=== PATIENT | male | born 1945 | race Caucasian/White ===

== ENCOUNTER 2017-04-14 11:38 | Inpatient (IN) | payer OTHER ==
--- NOTE | ~2017-04-14 | HEMODYNAMI ---
PATIENT:PATEL FARRIS MEDICAL RECORD: [id number] : 47 LOCATION:[place] [address] ADMISSION DATE: 04/14/17 Generatedon:04/15/20177:47 Patient name: PATEL FARRIS Patient #: [id number] SSN: DO B: 1945 Date of study: 04/15/2017 Page: Of Hemodynamic Procedure Report Patient Data Patient Demographics Procedure consent was obtained First Name: PATEL Gender: Male Last Name: KALEIGH : 1945 Patient #: [id number] Age: 72 year(s) Race: Unknown Additional ID: [id number] Contact details [address]: [address] [place] [address] State: [place] City: [place] Zip code: [address] Admission Admission Data Admission Date: 04/14/2017 Admission Time: 15:25 Room #: D2117 Lab Results Lab Result Date: 04/15/2017 Lab Result Time: 0:00 Biochemistry Name Units Result Min Max BUN mg/dl 9 --(*---)-- 7 18 Creatinine mg/dl 0.9 --(-*--)-- 0.6 1.3 CBC Name Units Result Min Max Hematocrit % 40.9 -*(----)-- 42 54 Hemoglobin g/dl 14.2 --(*---)-- 13.5 17.5 RBC 10^6/l 4.23 --(*---)-- 4.2 6.1 Procedure Procedure Types Cath Procedure Diagnostic Procedure LHC LHC w/Coronaries Miscellaneous Procedures Moderate Sedation up to 15 minutes Procedure Description Procedure Date Procedure Date: 04/15/2017 Procedure Start Time: 7:29 Procedure End Time: 7:46 Procedure Staff Name Function Sid Johnson MD Performing Physician Kady Gallegos RT Scrub Laura Ferreira RN Nurse Darron Yang RT Monitor Procedure Data Cath Procedure Fluoroscopy Diagnostic fluoroscopy Total fluoroscopy Time: 1.8 time: 1.8 min min Diagnostic fluoroscopy Total fluoroscopy dose: 411 dose: 411 mGy mGy Contrast Material Contrast Material Type Amount (ml) Isovue 300 62 Entry Location Entry Primary Successful Side Size Upsize Upsize Entry Closure Ernst ccessful Closure Location (Fr) 1 (Fr) 2 (Fr) Remarks Device Remarks Radial Right 6 Fr Mechanical artery Short Compression Estimated blood loss: 10 ml Diagnostic catheters Device Type Used For End Catheter Placement Terumo 5Fr Jag 110cm Procedure catheter Procedure Complications No complications Procedure Medications Medication Administration Route Dosage Oxygen NC 2 l/min Lidocaine 2% added to field 20 Heparin Flush Bag added to field 2 bags (1000units/500ml NS) 0.9% NaCl I.V. 100 ml/hr Plavix P.O. 75 mg Versed I.V. 0.5 mg Fentanyl I.V. 25 mcg Versed I.V. 0.5 mg Fentanyl I.V. 25 mcg Radial Cocktail I.A. 1 syringe (Verapomil 2mg/Nitro 400mcg/Heparin 1500units) Hemodynamics Rest HGB: 14.2 (g/dl) Heart Rate: 54 (bpm) Pressure Samples Time Site Value (mmHg) Purpose Heart Use Rate(bpm) 7:32 LV 117/4,18 Snapshot 73 7:34 AO 92/62(76) Snapshot 63 Gradients Valve Time Site Site Mean SEP/DFP Peak To Heart Use 1 2 (mmHg) (sec/min) Peak Rate (mmHg) (bpm) Aortic 7:33 LV AO 80 Snapshots Pre Cath Intra NCS Post Cath Vital Signs Time Heart Resp SPO2 etCO2 NIBP (mmHg) Rhythm Pain Sedation Rate (ipm) (%) (mmHg) Status Level (bpm) 7:21:39 58 19 97 32.5 No Cuff NSR 0 (11) 10(A) , No pain 7:25:49 58 15 97 10.6 124/70(88) NSR 0 (11) 10(A) , No pain 7:30:28 61 15 97 21.2 107/63(79) NSR 0 (11) 9(A) , No pain 7:35:04 70 16 93 37.1 95/59(81) NSR 0 (11) 9(A) , No pain 7:40:03 75 15 94 10.6 131/98(114) NSR 0 (11) 9(A) , No pain 7:44:44 68 16 95 26.5 108/63(81) NSR 0 (11) 10(A) , No pain Medications Time Medication Route Dose Verified Delivered Reason Notes E ffectiveness by by 7:20:44 Oxygen NC 2 l/min Sid Buffie used for Alex Ferreira RN procedure 7:20:52 Lidocaine 2% added 20ml Sid Sid for local to vial Alex Johnson MD anesthetic field 7:20:58 Heparin Flush added 2 bags Sid Sid used for Bag to Alex Johnson MD procedure (1000units/500ml field NS) 7:21:08 0.9% NaCl I.V. 100 Sid Buffie Per ml/hr Alex Ferreira RN physician 7:21:17 Plavix P.O. 75 mg Sid Buffie for Alex Ferreira RN antiplatelet therapy 7:26:10 Versed I.V. 0.5 mg Sid Buffie for sedation Alex Ferreira RN 7:26:15 Fentanyl I.V. 25 mcg Sid Buffie for sedation Alex Ferreira RN 7:30:00 Versed I.V. 0.5 mg Sid Buffie for sedation Alex Ferreira RN 7:30:07 Fentanyl I.V. 25 mcg Sid Buffie for sedation Alex Ferreira RN 7:31:26 Radial Cocktail I.A. 1 Sid Sid for (Verapomil syringe Alex Johnson MD vasodilation 2mg/Nitro 400mcg/Heparin 1500units) Procedure Log Time Note 6:50:46 H&P Date Dictated: 04/14/2017 Within 30 days and on chart., H&P Addendum completed by physician on day of procedure. (MUST COMPLETE FOR ALL OUTPATIENTS). 6:51:57 Lab Result : Creatinine 0.9 mg/dl 6:51:57 Lab Result : BUN 9 mg/dl 6:51:57 Lab Result : RBC 4.23 10^6/l 6:51:57 Lab Result : Hemoglobin 14.2 g/dl 6:51:57 Lab Result : Hematocrit 40.9 % 6:52:04 Lab results completed and on chart. 7:00:19 Laura Ferreira RN sent for patient. Start room use. 7:00:22 Time tracking: Regular hours 7:00:26 Plan of Care:Hemodynamics will remain stable., Cardiac rhythm will remain stable., Comfort level will be maintained., Respiratory function will remain adequate., Patient/ family verbilizes understanding of procedure., Procedure tolerated without complication., Recovers from procedure without complications.. 7:13:15 Patient received from PCU to CCL 1 Alert and oriented. Tansferred to table in Supine position. 7:13:16 Warm blankets applied, and dawson hugger turned on for patient comfort. 7:13:17 Correct patient and procedure confirmed by team. 7:13:18 Signed procedure consent form obtained from patient. 7:13:19 ECG and BP/O2 sat monitors applied to patient. 7:13:20 Full Disclosure recording started 7:20:44 Oxygen 2 l/min NC was administered by Laura Ferreira RN; used for procedure; 7:20:50 Vital chart was started 7:20:52 Lidocaine 2% 20ml vial added to field was administered by Sid Johnson MD; for local anesthetic; 7:20:58 Heparin Flush Bag (1000units/500ml NS) 2 bags added to field was administered by Sid Johnson MD; used for procedure; 7:20:59 Baseline sample Acquired. 7:21:08 0.9% NaCl 100 ml/hr I.V. was administered by Laura Ferreira RN; Per physician; 7:21:08 Rhythm: sinus bradycardia 7:21:11 Pre-procedure instructions explained to patient. 7:21:12 Pre-op teaching completed and patient verbalized understanding. 7:21:15 Family in patients room. 7:21:17 Plavix 75 mg P.O. was administered by Laura Ferreira RN; for antiplatelet therapy; 7:21:17 Patient NPO since Midnight. 7:21:26 Is the patient allergic to Iodine/contrast media? No. 7:21:28 Is patient on blood thinner?Yes 7:21:30 ACC The patient was administered the following blood thiners within the last 24 hours: ACCPlavix 7:21:32 Patient diabetic? No. 7:21:34 Previous problem with sedation/anesthesia? No ? 7:21:36 Snore? Yes 7:21:36 Sleep apnea? Yes 7:21:38 Deviated septum? No 7:21:38 Opens mouth fully? Yes 7:21:40 Sticks out tongue? Yes 7:21:43 Airway obstruction? No ? 7:21:47 Dentures? Yes IN 7:21:51 Pre procedure: right dorsailis pedis pulse 1+ Palpable, but thready & weak; easily obliterated 7:21:54 Modified Nahum's test Ulnar < 7 seconds 7:22:00 Patient pain scale 0/10 ?. 7:22:13 IV patent on arrival in right forearm with 0.9% NaCl at [facility]. 7:22:22 Right Radial & Right Groin area was prepped with chlora-prep and draped in sterile fashion 7:22:23 Alarms reviewed by R. N. 7:22:24 Sharps counted by scrub and verified by R.N. 7:22:30 Use device set Radial Dx 7:22:32 Acist Hand Control opened to sterile field. 7:22:32 Acist Manifold opened to sterile field. 7:22:32 Tegaderm 4 x 4 opened to sterile field. 7:22:34 Acist Syringe opened to sterile field. 7:22:34 Medline Cath Pack opened to sterile field. 7:22:34 Bag Decanter opened to sterile field. 7:22:35 Terumo 6Fr Slender Glidesheath opened to sterile field. 7:22:35 St Henrry 260cm J .035 wire opened to sterile field. 7:22:36 MBrace Wrist Support opened to sterile field. 7:22:42 --------ALL STOP TIME OUT------ 7:22:43 Final Timeout: patient, procedure, and site verified with staff and physician. All members of the team are in agreement. 7:22:45 Right Radial & Right Groin site verified by team. 7:22:47 Physical assessment completed. ASA score P 2 - A patient with mild systemic disease as per Sid Johnson MD. 7:22:50 Sedation plan: IV Moderate Sedation Versed, Fentanyl 7:26:10 Versed 0.5 mg I.V. was administered by Laura Ferreira RN; for sedation; 7:26:15 Fentanyl 25 mcg I.V. was administered by Laura Ferreira RN; for sedation; 7:29:11 Procedure started. 7:29:15 Local anesthetic to right radial artery with Lidocaine 2% by Sid Johnson MD.INITIAL ACCESS ONLY 7:30:00 Versed 0.5 mg I.V. was administered by Laura Ferreira RN; for sedation; 7:30:07 Fentanyl 25 mcg I.V. was administered by Laura Ferreira RN; for sedation; 7:30:57 A 6 Fr Short sheath was inserted into the Right Radial artery 7:31:26 Radial Cocktail (Verapomil 2mg/Nitro 400mcg/Heparin 1500units) 1 syringe I.A. was administered by Sid Johnson MD; for vasodilation; 7:32:29 A Terumo 5Fr Jag 110cm catheter was advanced over the wire and used for Procedure. 7:32:47 LV angiography performed. 7:32:48 LV gram done using CLINE 7:33:02 EF : 55 % 7:33:49 Injector settings: Ml/sec: 7, Volume: 15, 7:34:47 LCA angiography performed. 7:36:49 RCA angiography performed. 7:41:45 Catheter exchanged over wire. 7:42:44 Lab drawn for the P2Y12. 7:43:10 Sheath removed intact; hemostasis achieved with Mechanical Compression to the Right Radial artery. 7:43:13 Procedure ended.(Physican Out) 7:43:37 Terumo TR Band Standard opened to sterile field. 7:44:11 Fluoroscopy time 01.80 minutes. 7:44:15 Fluoroscopy dose: 411 mGy 7:44:15 Flurop Dose total: 411 7:44:22 Contrast amount:Isovue 300 62ml. 7:44:24 Sharps counted by scrub and verified by R.N. 7:44:26 TR band inflated with 11cc of air. 7:44:28 Insertion/operative site no bleeding no hematoma. 7:44:41 Post Procedure Pulses reassessed and unchanged 7:45:10 Post-procedure physical assessment completed. ASA score P 2 - A patient with mild systemic disease as per Sid Johnson MD. 7:45:24 Post procedure rhythm: unchanged. 7:45:27 Estimated blood loss: 10 ml 7:45:29 Post procedure instruction explained to patient.Patient verbalizes understanding. 7:45:29 Patient needs reinforcement of post procedure teaching. 7:45:43 Procedure and supply charges have been captured, reviewed, submitted and are correct. 7:45:46 Procedure Complication : No complications 7:46:13 Vital chart was stopped 7:46:14 See physician's report for complete and final results. 7:46:35 Report given to PCU. 7:46:40 Patient transfered to PCU with Bed. 7:46:42 Procedure ended. 7:46:42 Full Disclosure recording stopped 7:46:47 End room use (Document Last) Device Usage Item Name Manufacture Quantity Catalog Hospital Part Current Minimal Lot# / Number Charge Number Stock Stock Serial# Code Acist Hand Acist 1 30576 949290 517371 140893 5 Control Medical [employer] Inc Acist Acist 1 92530 176016 086483 399454 5 Manifold Medical Systems Inc Tegaderm 4 3M 1 1626W 752106 402616 275237 5 x 4 Acist Acist 1 23978 172144 787166 999075 20 Syringe Medical Systems Inc Medline Cardinal 1 [id number] 224433 85652 629288 5 Cath Pack Health Bag Microtek 1 2002S 269802 58836 622406 5 DecInnovaspire Medical Inc. Terumo 6Fr Terumo 1 [id number] 216049 623177 881495 [address] Henrry 1 121512 966368 864785 895875 30 260cm J .035 wire MBrace Advanced 1 140-0250-00 551991 14705 240430 5 Wrist Vascular Support Dynamics Terumo 5Fr Terumo 1 53-2398 425603 165304 979447 5 Jag 110cm catheter Terumo TR Terumo 1 [id number] 282899 974945 40 Band Standard Signature Audit [place] Stage Time Signature Unsigned Intra-Procedure 04/15/2017 Darron Yang 7:47:47 AM RT(R) Signatures Monitor : Darron Yang RT Signature : Date : Time : [facility] [address] [place] [address]
[2017-04-14 12:15] LABS: BASOPHILS 0.5 % (0-2); EOSINOPHILS 3.6 % (0-7); HEMATOCRIT 40.9 % (42.0-54.0); HEMOGLOBIN 14.2 g/dL (13.5-17.5); IMMATURE GRANULOCYTES 0.4 % (0-5); LYMPHOCYTES 31.4 % (15-50); MCH 33.6 pg (26.0-34.0); MCHC 34.7 g/dL (31.0-37.0); MCV 96.7 fL (80.0-100.0); MEAN PLATELET VOLUME 9.5 fL (7.4-10.4); MONOCYTES 9.9 % (2-11); NEUTROPHILS 54.2 % (40-80); PLATELET COUNT 200 10x3/uL (130-400); RBC 4.23 10x6/uL (4.20-6.10); WBC 7.8 10x3/uL (4.8-10.8)
[2017-04-14 12:42] LABS: ALBUMIN 3.5 g/dL (3.4-5.0); ALKALINE PHOSPHATASE 109 U/L (46-116); ALT (SGPT) 24 U/L (10-68); BILIRUBIN - TOTAL 0.32 mg/dL (0.2-1.3); CALC OSMOLALITY 278 mosm/kg (275-300); CALCIUM 9.2 mg/dL (8.5-10.1); CARBON DIOXIDE 29.1 mmol/L (21.0-32.0); CHLORIDE - SERUM 105 mmol/L (98-107); CREATININE - SERUM 0.9 mg/dL (0.6-1.3); GLUCOSE 77 mg/dL (74-106); POTASSIUM - SERUM 4.2 mmol/L (3.5-5.1); PROTEIN - SERUM 7.6 g/dL (6.4-8.2); SODIUM 141 mmol/L (136-145); UREA NITROGEN 9 mg/dL (7-18); eGFR NON AFRICAN AMERICAN 88 mL/min (90-120)
[2017-04-14 12:46] LABS: INR 0.97 (0.85-1.17); PROTIME 12.7 SECONDS (11.6-15.0)
[2017-04-14 12:58] LABS: CHOL - HDL RATIO 4.7 ratio (2.3-4.9); CHOLESTEROL, TOTAL 156 mg/dL (0-200); CKMB 1.9 U/L (0.0-3.6); CREATINE KINASE 133 UL (21-232); HDL CHOLESTEROL 33 mg/dL (32-96); LDL CHOLESTEROL 73 mg/dL (0-100); LDL-HDL RATIO 2.2 ratio (1.5-3.5); TRIGLYCERIDE 253 mg/dL (30-200)
[2017-04-14 13:03] LABS: MAGNESIUM - SERUM 2.3 mg/dL (1.8-2.4); TROPONIN-I < 0.017 ng/mL (0.000-0.060)
[2017-04-14 13:59] LABS: APPEARANCE CLEAR (CLEAR); COLOR YELLOW (YELLOW); SPECIFIC GRAVITY 1.015 (1.005-1.020)
[2017-04-14 14:00] LABS: BILIRUBIN NEGATIVE (NEGATIVE); GLUCOSE NEGATIVE (NEGATIVE); KETONE NEGATIVE (NEGATIVE); NITRITE NEGATIVE (NEGATIVE); PROTEIN NEGATIVE (NEGATIVE); UROBILINOGEN NORMAL (NORMAL)
[2017-04-14 15:40] LABS: CALC OSMOLALITY 282 mosm/kg (275-300); CALCIUM 9.7 mg/dL (8.5-10.1); CARBON DIOXIDE 24.9 mmol/L (21.0-32.0); CHLORIDE - SERUM 105 mmol/L (98-107); CREATININE - SERUM 0.9 mg/dL (0.6-1.3); GLUCOSE 75 mg/dL (74-106); POTASSIUM - SERUM 4.2 mmol/L (3.5-5.1); SODIUM 143 mmol/L (136-145); UREA NITROGEN 9 mg/dL (7-18); eGFR NON AFRICAN AMERICAN 88 mL/min (90-120)
[2017-04-14 15:48] LABS: CKMB 1.6 U/L (0.0-3.6); CREATINE KINASE 117 UL (21-232)
[2017-04-14 15:51] LABS: TROPONIN-I < 0.017 ng/mL (0.000-0.060)
[2017-04-14] MEDS ORDERED: PLAVIX75 MG PO ×2 (16:45→18:19)
[2017-04-14 16:46] VITALS: BP 130/77
[2017-04-14] MEDS ORDERED: LOPRESSOR25 MG (16:46)
[2017-04-14] MEDS ORDERED: BAYER CHEWABLE81 MG PO (16:47)
[2017-04-14] MEDS ORDERED: NORVASC5 MG PO (16:49)
[2017-04-14] MEDS ORDERED: PROVENTIL HFA6.7 GM INH (16:49)
[2017-04-14 17:01] VITALS: BP 130/77; BMI 25.3
--- NOTE | 2017-04-14 17:15 | NUR ---
ARRIVED FROM ER VIA WC. NO CO CHEST PAIN. MONITOR ON. RATE @ 73. NSR. PT HAS HEARING AIDS AND GLASSES. NO EDEMA IN LOWER EXTREMITIES. [facility] PT DOESNT KNOW MEDICATION DOSAGE. SAYS SHE WILL CALL LATER WITH DOSAGE. SEE ASSESSMENT FOR FURTHER EVAL.
[2017-04-14] MEDS ORDERED: TOPROL XL50 MG PO (18:13)
[2017-04-14] MEDS ORDERED: NORVASC2.5 MG PO (18:15)
[2017-04-14] MEDS ORDERED: FLOMAX0.4 MG PO (18:18)
[2017-04-14 20:22] VITALS: BP 100/55
[2017-04-14 21:46] LABS: CKMB 1.3 U/L (0.0-3.6); CREATINE KINASE 107 UL (21-232)
[2017-04-14 21:47] LABS: TROPONIN-I < 0.017 ng/mL (0.000-0.060)
[2017-04-14 23:43] VITALS: BP 95/41
[2017-04-15 04:32] VITALS: BP 100/48
[2017-04-15 04:51] LABS: CREATINE KINASE 94 UL (21-232); TROPONIN-I < 0.017 ng/mL (0.000-0.060)
--- NOTE | 2017-04-15 07:15 | NUR ---
ASSESSMENT COMPLETED. TELEMERTY SHOWS SR. O2 AT 2 L/M PER NC. DENIES ANY NEEDS. NPO FOR CATH. TO ALCOHOL LAW ENFORCEMENT AGENT PER BED.
[2017-04-15 07:58] LABS: PLT FUNCT.(P2Y12) PLAVIX 252 PRU (194-418)
--- NOTE | 2017-04-15 08:19 | NUR ---
BACK FROM DRY CHAIN WORKER. V/S STABLE. TELEMERTY SHOWS SB AT 55. RIGHT WRIST TR BAN ON. FINGERS WARM, NO BLEEDING OR SWELLING . WILL MONITOR. NO PAIN
[2017-04-15 12:17] VITALS: BP 115/69
--- NOTE | 2017-04-15 13:43 | NUR ---
LYING QUIETLY. DENIES ANY NEEDS. CALL LIGHT IN REACH WITH SR UP. CATH SIDE TO RIGHT WRIST DRY AND INTACT. TELEMERTY SHOWS SR
--- NOTE | 2017-04-15 14:36 | NUR ---
RESTING QUIETLY. AWAITING CAROTID DOPPLER. DENIES ANY NEEDS. TELEMERTY SHOWS SR. WILL MONITOR
--- NOTE | 2017-04-15 15:33 | NUR ---
Patient Name: PATEL FARRIS Admission Status: ER Accout number: [id number] Admission Date: 04-14-2017 : 1945 Admission Diagnosis: Attending: GABBY IBRAHIM Current LOS: 1 Anticipated DC Date: Planned Disposition: [place] facility Primary Insurance: [employer] PLANNED EXTERNAL PROVIDER: [facility] Discharge Planning Comments: * Is the patient Alert and Oriented? Yes 0 * How many steps to enter\exit or inside your home? 2 0 * PCP DR[facility] PERSON[place] 0 * Pharmacy [facility] [place] 0 * Preadmission Environment Home with Family 0 * ADLs Independent 0 * Equipment Cane 0 * Other Equipment [facility] - MEDICAL EQUIPMENT PROVIDER PREFERENCE 0 * List name and contact numbers for known caregivers / representatives who currently or will assist patient after discharge: JAGDEEP FARRIS, SPOUSE, 0 * Community resources currently utilized None 0 * Please name any agencies selected above. NONE 0 * Additional services required to return to the preadmission environment? No 0 * Can the patient safely return to the preadmission environment? Yes 0 * Has this patient been hospitalized within the prior 30 days at any hospital? No 0 CM CALLED [place] EXPEDITOR, , NOTIFIED [facility] OF PT'S ADMISSION AND WILLINGNESS FOR [facility] TRANSFER. ERIN WILL SEND INFORMATION TO TRANSFER TEAM WHO WILL CONTACT CM OR DOCTOR WHEN VA BED IS AVAILABLE. CM MET WITH PT IN ROOM TO DISCUSS DISCHARGE PLANNING AND NEEDS. PT REPORTS LIVING AT HOME INDEPENDENTLY WITH SPOUSE. PT HAS CANE FROM THE [place]. PT HAS NO OUTSIDE SERVICES ASSISTING IN THE HOME. CM DISCUSSED AVAILABILITY OF HOME HEALTH, REHAB SERVICES AND MEDICAL EQUIPMENT. PT DENIES DISCHARGE NEEDS, REPORTS HIS WILL PICK HIM UP FOR DISCHARGE HOME. PT REPORTS HAVING [facility] WITH NO OTHER INSURANCE AND CONSENTS TO TRANSFER IF THEY HAVE A BED. Teacher Hearing Impaired: Leon Constantino
--- NOTE | 2017-04-15 16:35 | NUR ---
RATIONALE FOR SCD'S EXPLAINED. REFUSED SCD'S
--- NOTE | 2017-04-15 17:47 | NUR ---
LYING QUIETLY. NO NEEDS VOICED. TELEMERTY SHOWS SR. CALL LIGHT IN REACH WITH SR UP. WILL MONITOR
--- NOTE | 2017-04-15 19:32 | NUR ---
ASSESSMENT COMPLETE, A&O. RESPERATIONS EVEN, PT DENIES PAIN OR NEEDS AT THIS TIME, BED LOW, CL IN REACH.
[2017-04-15 20:12] VITALS: BP 119/66
--- NOTE | 2017-04-15 21:16 | NUR ---
HS MEDS GIVEN WITH FRESH ICE WATER, UP TO BR, GAIT STEADY.
--- NOTE | 2017-04-15 22:47 | NUR ---
PT LYING IN BED ON RIGHT SIDE, EYES CLOSED, RESPIRATIONS EVEN AND UNLABORED. CONTINUE TO MONITOR CLOSELY.
[2017-04-16 00:36] VITALS: BP 108/55
--- NOTE | 2017-04-16 03:14 | NUR ---
RESTING WITH EYES CLOSED, RESPERATIONS EVEN, NO S/S DISTRESS NOTED.
[2017-04-16 04:20] VITALS: BP 111/66
--- NOTE | 2017-04-16 07:13 | NUR ---
ASSESSMENT DONE. DENIES NEEDS.
[2017-04-16 08:11] VITALS: BP 121/65
--- NOTE | 2017-04-16 09:47 | NUR ---
RESTING QUIETLY. NO DISTRESS. MONITOR SHOWS SR @ 94. WILL CONTINUE TO MONITOR.
[2017-04-16 12:14] VITALS: BP 112/71
[2017-04-16 14:22] LABS: HEPATITIS C ANTIBODY <0.1 (0.0-0.9)
[2017-04-16 15:55] VITALS: BP 137/70
--- NOTE | 2017-04-16 17:58 | NUR ---
WITHOUT CHANGES OR DISTRESS NOTED AT THIS TIME. DENIES NEEDS.
[2017-04-16 20:35] VITALS: BP 116/55
--- NOTE | 2017-04-16 21:11 | NUR ---
HS MEDS GIVEN WITH FRESH ICE WATER. PT DENIES PAIN OR NEEDS, BED LOW, CL IN REACH.
--- NOTE | 2017-04-17 00:04 | NUR ---
TYLENOL GIVEN FOR C/O HEADACHE.
[2017-04-17 00:31] VITALS: BP 122/56
--- NOTE | 2017-04-17 01:42 | NUR ---
RESTING WITH EYES CLOSED, RESPERATIONS EVEN, NO S/S DISTRESS NOTED.
--- NOTE | 2017-04-17 02:34 | NUR ---
74 SR ON TELEMETRY, CALL LIGHT IN REACH. WILL CONTINUE WITH PLAN OF CARE.
--- NOTE | 2017-04-17 02:37 | NUR ---
ANSWERED CL, PT STATED THAT HE STILL HAS A HEACHACE, ASKED FOR BP TO BE CHECKED, 141/79 WITH H.R. OF 63. PT STATED THAT, THAT WAS A VERY HIGH BP FOR HIM AND WANTED TO KNOW WHY HIS HOME MEDS WERE NOT BEING GIVEN TO HIM. EXPAINED TO PT THAT THERE WAS NOT ANY ORDERS FOR HIS HOME TO BE GIVEN AT THIS TIME AND OFFERED TO CALL THE PHYSICIAN. PT INSISTED ON CALLING HIS TO EXPLAIN THE SITUATION. SPOKE WITH THE PTS AND INFORMED HER THAT THE PHYSICIAN WILL BE CALLED AND ASKED TO ADDRESS HOME MEDICATIONS.
--- NOTE | 2017-04-17 04:15 | NUR ---
SCIENTIFIC SOFTWARE ENGINEER AT BED SIDE TO OBTAIN VITALS.
[2017-04-17 05:33] VITALS: BP 128/64
[2017-04-17 08:00] VITALS: BP 102/60
--- NOTE | 2017-04-17 09:46 | NUR ---
ASSESSMENT DONE. DENIES NEEDS.
--- NOTE | 2017-04-17 10:38 | NUR ---
SPOKE WITH ERIN AT THE [facility] EXPIDATION [facility] ([phone]) AND EXPLAINED THAT DR IBRAHIM IS WANTING TO TRANSFER THE PATIENT TO [facility] FOR A CABG SECONDARY TO THE FACT THAT OUR CARDIO/THORASIC SURGEON COULD NOT DO THE SURGERY UNTIL FRIDAY OF NEXT WEEK AND THE PATIENT NEEDED IT NOW. SHE STATED THAT SHE WOULD UPDATE THE FILE AND TO SEND HIM WHERE HE NEEDS TO GO FOR CARE.
--- NOTE | 2017-04-17 11:13 | NUR ---
@ 0945, DR IBRAHIM TO THE FLOOR. STATED THAT HE WAS GOING TO TRY TO TRANSFER THE PATIENT TO DR FRANCES AT [facility] IN [place] SECONDARY TO DR TINAJERO NOT BEING ABLE TO DO A CABG UNTIL FRIDAY OF NEXT WEEK. @ 0939 NOTIFIED [facility] ADVISOR OF DR IBRAHIM'S PLAN TO TRANSFER. @ 7963 RECEIVED CALL BACK FROM BRYANT WHO STATED THAT [facility] HAS AUTHORIZED THE TRANSFER. (THE [facility] WAS NOTIFIED @ 1024). SPOKE WITH JOSE AT [facility] ([phone]). SHE STATED THAT SHE WOULD VERIFY AND CALL ME BACK. @ 9488 JOSE CALLED BACK. TOOK DOWN THE REST OF THE PATIENTS INFORMATION, IS FAXING THE TRANSFER BACK AGREEMENT AND THEN WILL CALL BACK WITH A BED AFTER IT IS RECEIVED.
--- NOTE | 2017-04-17 11:26 | NUR ---
@5426 RECEIVED A CALL FROM JOSE MONREAL RN ACCESS NURSE. THE PATIENT IS GOING TO RM 959 BED 1, NURSE REPORT IS TO BE CALLED TO [phone]. @ 2163 GOT PERMISSION FROM [facility] ROOM MACHINE OPERATOR TO SIGN MY NAME IN THE TRANSFERRING FACILITY DESIGNEE SIGNATURE SLOT. PATIENT SIGNED THE TRANSFER BACK FORM. THIS WAS FAXED TO JUN. THE NUMBER TO CALL REPORT TO HAS BEEN GIVEN TO THE FLOOR CARE TECHNICIAN TO GIVE THE NURSE (PRUDENCE KERNS) WHEN THE PAPERWORK IS READY.
--- NOTE | 2017-04-17 12:52 | NUR ---
REPORT CALLED TO JAMIE ANGELA RN AT [facility]
--- NOTE | 2017-04-17 13:15 | NUR ---
TRANSFERED TO [facility] PER AMBULANCE.
--- NOTE | 2017-05-02 10:35 | CN ---
PATIENT NAME:PATEL FARRIS MEDICAL RECORD: [id number] : [birth year] LOCATION:D. D.2117 ADMIT DATE: 04/16/17 ACCOUNT: [id number] CONSULTING PHYSICIAN: ONUR MCCORMACK MD REFERRING PHYSICIAN: GABBY JOHNSON M.D. DATE OF CONSULTATION: 04/15/2017 CONSULT REQUESTING PHYSICIAN: Sid Johnson MD REASON FOR CONSULTATION: Preop evaluation. HISTORY OF PRESENT ILLNESS: Mr. Farris is a 72-year-old very pleasant gentleman who was admitted with chest pain. He underwent cardiac catheterization and found out he has a 3-vessel disease. According to the patient, he has COPD, he is doing fairly, he is not an home oxygen dependent. Sometimes he hears himself wheezing. He is using albuterol inhaler. He is also on some nasal spray for the nasal allergies. PAST MEDICAL HISTORY: 1. COPD. 2. Hypertension. 3. Coronary artery disease. 4. Allergic rhinitis. PAST SURGICAL HISTORY: He has cardiac catheterization and stent placement in the past. PERSONAL AND SOCIAL HISTORY: The patient has remote history of smoking. He is a nondrinker. FAMILY HISTORY: Noncontributory. PHYSICAL EXAMINATION: GENERAL: Now, the patient is lying comfortably. He is not in acute distress. VITAL SIGNS: The blood pressure is 115/69, pulse is 79, respirations 17, temperature is 98.4, SpO2 is 95% on room air. HEENT: Conjunctivae pink, sclerae nonicteric. NECK: Supple, no JVD. CHEST: The chest excursion is minimal on both sides, prolonged expiration with wheezing. HEART: Rhythm regular, normal sound, no murmur. ABDOMEN: Soft. Bowel sounds present. No hepatosplenomegaly. RECTAL: Deferred. EXTREMITIES: No cyanosis, no clubbing, no pedal edema. SKIN: Warm, normal turgor. CENTRAL NERVOUS SYSTEM: The patient is awake and alert. There are no obvious cranial nerve abnormality. Gait was not tested. IMPRESSION: 1. Chronic obstructive pulmonary disease without exacerbation. 2. Allergic rhinitis. 3. Unstable angina. 4. Preop evaluation. 5. Coronary artery disease with 3-vessel disease. 6. Hypertension. CONSULT REPORT [id number] PATEL FARRIS 7. Ex-smoker. RECOMMENDATION: 1. Start albuterol-ipratropium nebulizer. 2. Brovana-budesonide nebulizer. 3. Flonase nasal spray b.i.d. 4. Swathi 180 mg daily. 5. Check the PFT and ABG. 6. Further recommendation after these testing. Dr. Johnson thank you for involving me in the care of Mr. Farris. TRANSINT:[id number] Voice Confirmation ID: [id number] DOCUMENT ID: [id number] ONUR MCCORMACK MD at 1035 CC: GABBY JOHNSON M.D. [id number] DICTATION DATE: 04/15/17 1637 PRESSURE TESTER: 04/15/171932 DIS IN 04/17/17 [facility] [address] [place] [address]
== END 2017-04-17 13:16 | disposition short-term general hospital (02) | DRG 287 ==
LOC: D.ER 11:38 → D.M2 15:25 → OBSVTIME 15:25 → D.M2 04-16 10:07
PROVIDERS: Emergency Medicine; Internal Medicine Cardiovascular Disease; Nurse Practitioner Family; ADMIT Internal Medicine Cardiovascular Disease
PROC: B2151ZZ Fluoroscopy of Left Heart using Low Osmolar Contrast (ICD-10-PCS; 2017-04-15)
PROC: 4A023N7 Measurement of Cardiac Sampling and Pressure, Left Heart, Percutaneous Approach (ICD-10-PCS; 2017-04-15)
PROC: B2111ZZ Fluoroscopy of Multiple Coronary Arteries using Low Osmolar Contrast (ICD-10-PCS; principal; 2017-04-15 07:30)
DX: I25.110 Atherosclerotic heart disease of native coronary artery with unstable angina pectoris (principal); T82.855A Stenosis of coronary artery stent, initial encounter; Y83.8 Other surgical procedures as the cause of abnormal reaction of the patient, or of later complication, without mention of misadventure at the time of the procedure; I65.22 Occlusion and stenosis of left carotid artery; J44.9 Chronic obstructive pulmonary disease, unspecified; I10 Essential (primary) hypertension; J30.9 Allergic rhinitis, unspecified; Z86.73 Personal history of transient ischemic attack (TIA), and cerebral infarction without residual deficits; Z95.5 Presence of coronary angioplasty implant and graft; Z87.891 Personal history of nicotine dependence

== ENCOUNTER 2017-06-11 09:01 | Emergency (ER) | payer OTHER ==
[~2017-06-11 09:01] MED LIST: BAYER CHEWABLE81 MG PO; FLOMAX0.4 MG PO; LOPRESSOR25 MG; NORVASC2.5 MG PO; NORVASC5 MG PO; PLAVIX75 MG PO; PROVENTIL HFA6.7 GM INH; TOPROL XL50 MG PO
[2017-06-11 09:37] LABS: BASOPHILS 0.9 % (0-2); HEMATOCRIT 37.5 % (42.0-54.0); IMMATURE GRANULOCYTES 0.2 % (0-5); LYMPHOCYTES 37.1 % (15-50); MCH 32.8 pg (26.0-34.0); MCHC 34.7 g/dL (31.0-37.0); MCV 94.7 fL (80.0-100.0); MEAN PLATELET VOLUME 9.7 fL (7.4-10.4); MONOCYTES 8.3 % (2-11); NEUTROPHILS 46.5 % (40-80); PLATELET COUNT 218 10x3/uL (130-400); RBC 3.96 10x6/uL (4.20-6.10); RDW 12.1 % (11.5-14.5); WBC 5.6 10x3/uL (4.8-10.8)
[2017-06-11 09:57] LABS: ALBUMIN 3.5 g/dL (3.4-5.0); ALKALINE PHOSPHATASE 128 U/L (46-116); ALT (SGPT) 26 U/L (10-68); BILIRUBIN - TOTAL 0.37 mg/dL (0.2-1.3); CALC OSMOLALITY 282 mosm/kg (275-300); CALCIUM 9.1 mg/dL (8.5-10.1); CARBON DIOXIDE 30.7 mmol/L (21.0-32.0); CHLORIDE - SERUM 105 mmol/L (98-107); CREATININE - SERUM 0.9 mg/dL (0.6-1.3); GLUCOSE 117 mg/dL (74-106); POTASSIUM - SERUM 4.7 mmol/L (3.5-5.1); PROTEIN - SERUM 7.8 g/dL (6.4-8.2); SODIUM 142 mmol/L (136-145); UREA NITROGEN 11 mg/dL (7-18); eGFR NON AFRICAN AMERICAN 88 mL/min (90-120)
[2017-06-11 10:03] LABS: PRO BNP 84 pg/mL (0-125); TROPONIN-I < 0.017 ng/mL (0.000-0.060)
== END 2017-06-11 11:28 | disposition home or self-care (01) ==
LOC: D.ER 09:01
PROVIDERS: Emergency Medicine
DX: I50.9 Heart failure, unspecified (principal); R06.00 Dyspnea, unspecified; I25.10 Atherosclerotic heart disease of native coronary artery without angina pectoris; J44.9 Chronic obstructive pulmonary disease, unspecified; I49.3 Ventricular premature depolarization

== ENCOUNTER 2018-05-06 10:25 | Emergency (ER) | payer OTHER ==
[2018-05-06 10:50] VITALS: Ht 172.7 cm
[2018-05-06 11:40] LABS: ALBUMIN 3.5 g/dL (3.4-5.0); ALKALINE PHOSPHATASE 98 U/L (46-116); ALT (SGPT) 31 U/L (10-68); BILIRUBIN - TOTAL 0.48 mg/dL (0.2-1.3); CALC OSMOLALITY 275 mosm/kg (275-300); CALCIUM 8.7 mg/dL (8.5-10.1); CARBON DIOXIDE 28.6 mmol/L (21.0-32.0); CHLORIDE - SERUM 103 mmol/L (98-107); CREATININE - SERUM 0.9 mg/dL (0.6-1.3); GLUCOSE 96 mg/dL (74-106); PROTEIN - SERUM 7.4 g/dL (6.4-8.2); SODIUM 138 mmol/L (136-145); UREA NITROGEN 12 mg/dL (7-18); eGFR NON AFRICAN AMERICAN 88 mL/min (90-120)
[2018-05-06 11:52] LABS: APTT 30.1 SECONDS (22.8-39.4); CKMB 3.8 U/L (0.0-3.6); CREATINE KINASE 208 UL (21-232); INR 1.03 (0.85-1.17); MAGNESIUM - SERUM 1.9 mg/dL (1.8-2.4); PROTIME 13.1 SECONDS (11.6-15.0); TROPONIN-I < 0.017 ng/mL (0.000-0.060)
[2018-05-06 12:04] LABS: BASOPHILS 0.5 % (0-2); HEMATOCRIT 36.8 % (42.0-54.0); HEMOGLOBIN 12.8 g/dL (13.5-17.5); IMMATURE GRANULOCYTES 0.2 % (0-5); LYMPHOCYTES 29.5 % (15-50); MCH 32.2 pg (26.0-34.0); MCHC 34.8 g/dL (31.0-37.0); MCV 92.7 fL (80.0-100.0); MEAN PLATELET VOLUME 9.8 fL (7.4-10.4); MONOCYTES 8.3 % (2-11); NEUTROPHILS 58.5 % (40-80); PLATELET COUNT 202 10x3/uL (130-400); RBC 3.97 10x6/uL (4.20-6.10); RDW 11.8 % (11.5-14.5); WBC 5.8 10x3/uL (4.8-10.8)
[2018-05-06 15:45] VITALS: BP 147/83
== END 2018-05-06 15:46 | disposition home or self-care (01) ==
LOC: D.ER 10:25
PROVIDERS: Family Medicine
DX: R07.89 Other chest pain (principal); I25.10 Atherosclerotic heart disease of native coronary artery without angina pectoris; I10 Essential (primary) hypertension; Z86.73 Personal history of transient ischemic attack (TIA), and cerebral infarction without residual deficits; J44.9 Chronic obstructive pulmonary disease, unspecified; N42.9 Disorder of prostate, unspecified

== ENCOUNTER 2019-01-24 08:10 | Emergency (ER) | payer OTHER ==
[~2019-01-24] VITALS: Ht 172.7 cm; Wt 78.6 kg
[2019-01-24 08:14] VITALS: Ht 172.7 cm; Wt 78.6 kg
[2019-01-24] MEDS ORDERED: SYMBICORT 80-10.2 GM INH (08:16)
[2019-01-24 08:50] LABS: BASOPHILS 0.3 % (0-2); EOSINOPHILS 2.5 % (0-7); HEMATOCRIT 38.5 % (42.0-54.0); HEMOGLOBIN 13.5 g/dL (13.5-17.5); IMMATURE GRANULOCYTES 0.2 % (0-5); LYMPHOCYTES 28.9 % (15-50); MCH 32.7 pg (26.0-34.0); MCHC 35.1 g/dL (31.0-37.0); MCV 93.2 fL (80.0-100.0); MEAN PLATELET VOLUME 9.4 fL (7.4-10.4); MONOCYTES 10.7 % (2-11); NEUTROPHILS 57.4 % (40-80); PLATELET COUNT 176 10x3/uL (130-400); RBC 4.13 10x6/uL (4.20-6.10); RDW 12.3 % (11.5-14.5); WBC 6.1 10x3/uL (4.8-10.8)
[2019-01-24 08:53] LABS: APPEARANCE CLEAR (CLEAR); BILIRUBIN NEGATIVE (NEGATIVE); COLOR STRAW (YELLOW); GLUCOSE NEGATIVE (NEGATIVE); KETONE NEGATIVE (NEGATIVE); NITRITE NEGATIVE (NEGATIVE); PROTEIN NEGATIVE (NEGATIVE); SPECIFIC GRAVITY 1.005 (1.005-1.020); UROBILINOGEN NORMAL (NORMAL)
[2019-01-24 08:58] LABS: APTT 31.6 SECONDS (22.8-39.4); INR 1.06 (0.85-1.17); PROTIME 13.3 SECONDS (11.6-15.0)
[2019-01-24 09:04] LABS: ALBUMIN 3.6 g/dL (3.4-5.0); ALKALINE PHOSPHATASE 102 U/L (46-116); ALT (SGPT) 36 U/L (10-68); CALC OSMOLALITY 282 mosm/kg (275-300); CALCIUM 8.8 mg/dL (8.5-10.1); CARBON DIOXIDE 29.7 mmol/L (21.0-32.0); CHLORIDE - SERUM 105 mmol/L (98-107); GLUCOSE 99 mg/dL (74-106); PROTEIN - SERUM 7.5 g/dL (6.4-8.2); SODIUM 142 mmol/L (136-145); UREA NITROGEN 12 mg/dL (7-18); eGFR NON AFRICAN AMERICAN 78 mL/min (90-120)
[2019-01-24] MEDS ORDERED: ANALPRAM HC 2.530 GM RC (09:54)
[2019-01-24 10:07] VITALS: BP 128/72
== END 2019-01-24 10:08 | disposition home or self-care (01) ==
LOC: D.ER 08:10
PROVIDERS: Family Medicine
DX: K92.1 Melena (principal); K59.00 Constipation, unspecified; K64.9 Unspecified hemorrhoids

== ENCOUNTER → 2019-01-26 13:12 | Outpatient (CLI) | payer OTHER ==
[2019-01-24 08:14] VITALS: BMI 26.3
[~2019-01-26 13:12] MED LIST changes: +ANALPRAM HC 2.530 GM RC; +SYMBICORT 80-10.2 GM INH
== END | disposition home or self-care (01) ==
LOC: D.HCCARDIO 13:12
PROVIDERS: ATTEND Internal Medicine Cardiovascular Disease
DX: I25.10 Atherosclerotic heart disease of native coronary artery without angina pectoris (principal)